=== PATIENT | male | born 1970 | race African-American/Black ===

== ENCOUNTER 2017-08-24 02:19 | Emergency (ER) | payer OTHER ==
[~2017-08-24] VITALS: Ht 165.1 cm; Wt 99.8 kg
[2017-08-24] MEDS ORDERED: cloNIDine HCL 0.1 MG TAB PO ONE (02:30)
[2017-08-24 04:10] LABS: Urine Bacteria NONE SEEN /hpf (None Seen); Urine Blood Negative /uL (Negative); Urine Mucus FEW (None Seen); Urine Specific Gravity 1.012 (1.001-1.035); Urine WBC <1 /hpf (0 - 3)
[2017-08-24 04:13] LABS: Basophils # (auto) 0.1 uL; Basophils % (auto) 1.4 % (0.0-2.0); Eosinophils # (auto) 0.1 uL; Eosinophils % (auto) 1.9 % (0.0-7.0); Hematocrit 45.5 % (41.0-53.0); Hemoglobin 15.8 g/dL (13.5-17.5); Lymphocytes # (auto) 1.4 uL; Lymphocytes % (auto) 28.6 % (10.0-50.0); Mean Corpuscular Hemoglobin 30.6 pg (28.0-32.0); Mean Corpuscular Hgb Conc. 34.8 g/dL (32.0-36.0); Monocytes # (auto) 0.6 uL; Monocytes % (auto) 11.6 % (0.0-12.0); Neutrophils # (auto) 2.8 uL; Neutrophils % (auto) 56.5 % (37.0-80.0); Platelet Count (auto) 315 10^3/uL (140-450); Red Blood Cells 5.17 10^6/uL (4.5-5.90)
[2017-08-24 04:34] LABS: Alanine Aminotransferase 42 U/L (16-61); Albumin 3.8 g/dL (3.4-5.0); Alkaline Phosphatase 80 U/L (45-117); Anion Gap 8 (5-15); Aspartate Aminotransferase 19 U/L (15-37); BUN/Creatinine Ratio 10.5; Bilirubin, Total 0.4 mg/dL (0.2-1.0); Blood Urea Nitrogen 11 mg/dL (7-18); Calcium 9.4 mg/dL (8.5-10.1); Carbon Dioxide 25 mmol/L (21-32); Chloride 105 mmol/L (98-107); GFR African American 98 mL/min; GFR Non-African American 81 mL/min; Glucose 102 mg/dL (74-106); Magnesium 2.6 mg/dL (1.6-2.6); Potassium 3.9 mmol/L (3.5-5.1); Sodium 138 mmol/L (136-145); Total Protein 7.6 g/dL (6.4-8.2)
[2017-08-24] MEDS ORDERED: SODIUM CHLORIDE 0.9% 1,000 ML IV ONE (05:00)
[2017-08-24 05:57] VITALS: BP 119/89
== END 2017-08-24 06:07 | disposition home or self-care (01) ==
LOC: ER 02:21
DX: K21.9 Gastro-esophageal reflux disease without esophagitis (principal); I10 Essential (primary) hypertension; M79.602 Pain in left arm; E66.01 Morbid (severe) obesity due to excess calories; Z68.36 Body mass index [BMI] 36.0-36.9, adult
CPT/HCPCS: 36415; 71045; 80053; 81001; 82962; 83735; 84484; 85025; 93005